=== PATIENT | male | born 1965 | race Caucasian/White ===

== ENCOUNTER 2023-11-20 07:07 | Day surgery (SDC) | payer BC ==
[2023-11-20] VITALS (13 sets, daily range): BP systolic 99–147; BP diastolic 66–88; PULSE 53–67; RESP 16; TEMP 97.5; O2SAT 94–98
[~2023-11-20] VITALS: Ht 185.4 cm; Wt 115.9 kg
[2023-11-20] MEDS ORDERED: NITR0.4T51 SL (07:53)
[2023-11-20] MEDS ORDERED: METO-384 PO (07:53)
[2023-11-20] MEDS ORDERED: AMLO2.5T2 PO (07:53)
[2023-11-20] MEDS ORDERED: OMEP40CA21 PO (07:53)
[2023-11-20] MEDS ORDERED: HYDR-3968 PO (07:53)
[2023-11-20] MEDS ORDERED: ROSU40TA PO (07:53)
[2023-11-20] MEDS: LORazepam 0.5 MG tablet PO PRN (08:16)
[2023-11-20] MEDS: diphenhydrAMINE 25mg capsule PO PRN (08:16)
[2023-11-20] MEDS: normal saline 1,000 ML IV SCH (08:17)
[2023-11-20 08:21] LABS: BASOPHILS # (AUTO) 0.1 X10'3 (0-0.2); EOSINOPHILS # (AUTO) 0.2 X10'3 (0-0.9); EOSINOPHILS % (AUTO) 2.3 % (0-6); HEMATOCRIT 42.5 % (42.0-52.0); HEMOGLOBIN 14.6 g/dl (14.0-17.9); LYMPHOCYTES # (AUTO) 1.7 X10'3 (1.1-4.8); LYMPHOCYTES % (AUTO) 26.7 % (21-51); MEAN CORPUSCULAR HEMOGLOBIN 32.6 PG (27.0-31.0); MEAN CORPUSCULAR HGB CONC 34.4 g/dL (33.0-36.5); MEAN CORPUSCULAR VOLUME 94.7 FL (78-98); MEAN PLATELET VOLUME 9.9 FL (7.4-10.4); MONOCYTES # (AUTO) 0.7 X10'3 (0-0.9); MONOCYTES % (AUTO) 11.2 % (2-12); NEUTROPHILS # (AUTO) 3.8 X10'3 (1.8-7.7); NEUTROPHILS % (AUTO) 58.8 % (42-75); PLATELET COUNT 157 X10'3 (140-440); RED BLOOD COUNT 4.49 X10'6 (4.70-6.10); RED CELL DISTRIBUTION WIDTH 12.6 % (11.5-14.5); WHITE BLOOD COUNT 6.5 X10'3 (4.5-11.0)
[2023-11-20] MEDS ORDERED: midazolam 1 mg/ML 2ml injection ONE (08:22)
[2023-11-20] MEDS ORDERED: iohexol 350 MG/ML 50ML vial IV ONE (08:23)
[2023-11-20] MEDS ORDERED: iohexol 350MG/ML 100ml bottle IV ONE (08:23)
[2023-11-20] MEDS ORDERED: fentaNYL/PF 50MCG/1 ML 2ML syringe ONE (08:23)
[2023-11-20] MEDS ORDERED: LIDOcaine 1% 30ml preserv. free vial ONE (08:23)
[2023-11-20 08:28] LABS: ALBUMIN 3.4 G/DL (3.4-5.0); ANION GAP 9 (8-16); BLOOD UREA NITROGEN 15 MG/DL (7-18); BUN/CREATININE RATIO 16.7 (10.0-20.0); CHLORIDE 109 MMOL/L (99-107); GLUCOSE 101 MG/DL (70-104); POTASSIUM 3.9 MMOL/L (3.5-5.1); SODIUM 141 MMOL/L (135-145); TOTAL CARBON DIOXIDE 23.5 MMOL/L (24-32); eCRCL 104 ML/MIN; eGFR 87 ML/MIN
[2023-11-20 09:22] LABS: APTT 25 SECONDS (22-32); INR 0.9 INR; PROTHROMBIN TIME 10.1 SECONDS (9.0-12.0)
[2023-11-20] MEDS ORDERED: HYDROmorphone 1 mg/ml syringe ONE ×2 (09:50→10:02)
[2023-11-20] MEDS ORDERED: ondansetron/PF 4mg/2ml inj IV PRN (11:00)
[2023-11-20] MEDS ORDERED: normal saline 1000ml 1,000 ML IV SCH (11:00)
[2023-11-20] MEDS ORDERED: HYDROcodone/acetaminophen 5mg/325mg tablet PO PRN (11:05)
[2023-11-20] MEDS ORDERED: proCHLORperazine 10 MG/2 ml inj IV PRN (11:05)
[2023-11-20] MEDS ORDERED: HYDROcodone/acetaminophen 10/325mg tab PO PRN (11:05)
[2023-11-20] MEDS ORDERED: OXAZEpam 15mg capsule PO PRN (11:05)
[2023-11-20] MEDS ORDERED: ACETYLCYSTEINE 200 MG/1 ML 4 ML ORAL SOLUTION PO SCH (20:00)
== END 2023-11-20 16:45 | disposition home or self-care (01) ==
LOC: SSTAY O 07:07
PROVIDERS: ATTEND Internal Medicine Cardiovascular Disease
DX: T82.855A Stenosis of coronary artery stent, initial encounter (principal); I25.118 Atherosclerotic heart disease of native coronary artery with other forms of angina pectoris; I10 Essential (primary) hypertension; M47.817 Spondylosis without myelopathy or radiculopathy, lumbosacral region; M47.812 Spondylosis without myelopathy or radiculopathy, cervical region; E78.5 Hyperlipidemia, unspecified; D75.1 Secondary polycythemia; I25.2 Old myocardial infarction; E66.9 Obesity, unspecified; Z68.33 Body mass index [BMI] 33.0-33.9, adult; Z88.0 Allergy status to penicillin; Z79.01 Long term (current) use of anticoagulants; Z79.899 Other long term (current) drug therapy; F17.290 Nicotine dependence, other tobacco product, uncomplicated; Z96.652 Presence of left artificial knee joint; Z96.612 Presence of left artificial shoulder joint; Y84.0 Cardiac catheterization as the cause of abnormal reaction of the patient, or of later complication, without mention of misadventure at the time of the procedure; Y92.89 Other specified places as the place of occurrence of the external cause
CPT/HCPCS: 36415; 80048; 85025; 85610; 85730; 93005; 93459; 99152; 99153; J1170; J1644; J2250; J3010; J3490; J7030; Q0163; Q9967; 93458; A6258

== ENCOUNTER 2023-12-12 11:46 | Inpatient (IN) | payer BC ==
[2023-12-05 14:42] LABS: BILIRUBIN,URINE NEGATIVE (Neg); CLARITY,URINE CLEAR (Clear); COLOR,URINE YELLOW (Yellow); GLUCOSE, URINE NEGATIVE (Neg); KETONES,URINE NEGATIVE (Neg); LEUKOCYTE ESTERASE ,URINE NEGATIVE (Neg); NITRITES, URINE NEGATIVE (Neg); OCCULT BLOOD,URINE NEGATIVE (Neg); PH,URINE 5.5 (4.8-8.0); PROTEIN,URINE NEGATIVE (Neg); UROBILINOGEN,URINE 0.2 E.U/dL (0.2-1.0)
[2023-12-05 14:43] LABS: BASOPHILS # (AUTO) 0.1 X10'3 (0-0.2); BASOPHILS % (AUTO) 0.8 % (0-1); EOSINOPHILS # (AUTO) 0.3 X10'3 (0-0.9); EOSINOPHILS % (AUTO) 3.5 % (0-6); LYMPHOCYTES # (AUTO) 2.1 X10'3 (1.1-4.8); LYMPHOCYTES % (AUTO) 28.2 % (21-51); MEAN CORPUSCULAR HEMOGLOBIN 32.4 PG (27.0-31.0); MEAN CORPUSCULAR HGB CONC 34.1 g/dL (33.0-36.5); MEAN PLATELET VOLUME 9.6 FL (7.4-10.4); MONOCYTES # (AUTO) 0.8 X10'3 (0-0.9); MONOCYTES % (AUTO) 10.3 % (2-12); NEUTROPHILS # (AUTO) 4.2 X10'3 (1.8-7.7); NEUTROPHILS % (AUTO) 57.2 % (42-75); PRE OP HEMATOCRIT 45.6 % (42.0-52.0); PRE OP HEMOGLOBIN 15.6 g/dL (14.0-17.9); PRE OP PLATELET COUNT 187 X10'3 (140-440); PRE OP WHITE BLOOD COUNT 7.4 10'3 (4.8-10.8); RED CELL DISTRIBUTION WIDTH 12.7 % (11.5-14.5)
[2023-12-05 14:59] LABS: UA COLLECTION TYPE NON-SPECIFIED
[2023-12-05 15:09] LABS: HEMOGLOBIN A1C 5.2 % (4.5-6.2); PRE OP INR 0.9 INR
[2023-12-05 15:17] LABS: ALBUMIN 3.8 G/DL (3.4-5.0); ALBUMIN/GLOBULIN RATIO 1.1 (1.1-1.5); ALKALINE PHOSPHATASE 62 IU/L (46-116); BLOOD UREA NITROGEN 15 MG/DL (7-18); BUN/CREATININE RATIO 14.9 (10.0-20.0); CALCIUM 9.1 MG/DL (8.5-10.1); CHLORIDE 108 MMOL/L (99-107); CREATININE 1.01 MG/DL (0.60-1.10); PRE OP ALT 35 U/L (30-65); PRE OP ANION GAP 10 (8-16); PRE OP AST 13 U/L (10-37); PRE OP BILIRUB, TOTAL 0.4 MG/DL (0.0-1.0); PRE OP GLUCOSE 92 MG/DL (70-104); PRE OP POTASSIUM 4.5 MMOL/L (3.4-5.1); PRE OP SODIUM 143 MMOL/L (135-145); TOTAL CARBON DIOXIDE 25.4 MMOL/L (24-32); TOTAL PROTEIN 7.2 G/DL (6.4-8.2); eCRCL 92 ML/MIN; eGFR 76 ML/MIN
[2023-12-09 07:22] LABS: ABG BASE EXCESS -2.6 mmol/L (-2.0-2.0); ABG HCO3 21.4 mmol/L (22.0-26.0); ABG OXYGEN SATURATION 90.8 % (94-97); ABG PCO2 (T) 35.1 mmHg (35.0-48.0); ABG PH (T) 7.403 (7.340-7.440); ABG PO2 (T) 64.1 mmHg (75.0-100.0); ALLEN'S TEST POSITIVE; FCOHb 0.2 % (0.0-3.9); FHHb 9.2 % (0.0-5.0); FMetHb 0.2 % (0.0-1.5); FO2Hb 90.4 % (94-97); MODE ROOM AIR; TOTAL HEMOGLOBIN 16.2 G/dl (14.0-17.9)
[2023-12-11] MEDS: DOCUMENT DATE & TIME OF BETA-BLOCKER PO ONE (18:00)
[2023-12-12] VITALS (15 sets, daily range): BP systolic 90–175; BP diastolic 43–95; PULSE 57–102; RESP 13–30; TEMP 98.4–98.7; O2SAT 96–99
[~2023-12-12] VITALS: Ht 185.4 cm; Wt 114.5 kg
[~2023-12-12 11:46] MED LIST: AMLO2.5T2 PO; HYDR-3973 PO; METO-384 PO; NITR0.4T51 SL; NITR1PAT63 TOP; OMEP40CA21 PO; ROSU40TA PO; albuterol 2.5 MG/3 ML nebule NEB PRN; dextrose 50%-water 50ml dispensing syringe IV PRN
[2023-12-12] MEDS ORDERED: heparin 10,000 units/1 ML INJ ONE (12:15)
[2023-12-12] MEDS ORDERED: BUPIVAcaine 0.5% inj/PF 30 ML ONE ×2 (12:16→12:35)
[2023-12-12] MEDS ORDERED: CLOP-32 PO (12:16)
[2023-12-12] MEDS ORDERED: ceFAZolin 1000mg inj ONE (12:35)
[2023-12-12] MEDS: famotidine 20mg tablet PO ONE (12:57)
[2023-12-12] MEDS: mupirocin 2% nasal ointment 1gm UD NS SCH ×2 (12:57→19:42)
[2023-12-12] MEDS: ringers solution, lacted 1,000 ML IV SCH (12:58)
[2023-12-12] MEDS: metoprolol tartrate 12.5mg (1/2 tablet) PO ONE (12:58)
[2023-12-12] MEDS: vancomycin 1,500 MG in NS 300ml IV soln IV ONE (12:58)
[2023-12-12] MEDS: Insulin Reg/NS 100units/100mL 100 ML IV SCH ×2 (12:59→18:00)
[2023-12-12] MEDS: CLINDAMYCIN 600mg IN NS 50ML 50 ML IV ONE (12:59)
[2023-12-12] MEDS: LORazepam 2 mg/ml vial IV ONE (13:56)
[2023-12-12] MEDS ORDERED: sevoflurane 250ml liquid IH ONE (13:57)
[2023-12-12] MEDS ORDERED: MIDAZolam 1 MG/ML 5ML VIAL ONE (13:59)
[2023-12-12] MEDS ORDERED: SUfentanil 50mcg/ml 1ml amp IV ONE (13:59)
[2023-12-12 14:36] LABS: ABG BASE EXCESS -3.7 mmol/L (-2.0-2.0); ABG HCO3 20.9 mmol/L (22.0-26.0); ABG OXYGEN SATURATION 98.9 % (94-97); ABG PCO2 36.8 mmHg (35.0-48.0); ABG PH 7.373 (7.340-7.440); ABG PO2 186.3 mmHg (75.0-100.0); CL (ABG) 107 mmol/L (99-107); FCOHb 0.1 % (0.0-3.9); FHHb 1.1 % (0.0-5.0); FMetHb 0.3 % (0.0-1.5); FO2Hb 98.5 % (94-97); GLUCOSE (ABG) 90 mg/dl (70-104); IONIZED CA (ABG) 1.19 mmol/L (1.10-1.30); K (ABG) 3.8 mmol/L (3.5-5.1); TOTAL HEMOGLOBIN 14.4 G/dl (14.0-17.9)
[2023-12-12] MEDS ORDERED: clindamycin-Cleocin 900mg/D5W 50 ML IV ONE (14:46)
[2023-12-12] MEDS: epiNEPHrine 1 mg/ml inj ONE (14:50)
[2023-12-12] MEDS: vancomycin 1,000mg inj ONE (14:51)
[2023-12-12] MEDS ORDERED: heparin 1,000unit/ml 10ml vial 10 ML ONE ×2 (15:25)
[2023-12-12] MEDS ORDERED: albumin (Human) 5% 250ml 250 ML IV ONE ×2 (15:30→16:56)
[2023-12-12 15:31] LABS: ABG BASE EXCESS VENOUS -3.9 mmol/L (-2.0 - 2.0); ABG HCO3 VENOUS 22.5 mmol/L (21.0-28.0); ABG PCO2 VENOUS 45.9 mmHg (41.0-54.0); ABG PH (VENOUS) 7.308 (7.310-7.450); ABG PO2 VENOUS 39.8 mmHg (25.0-35.0); CL (ABG) 106 mmol/L (99-107); FCOHb VENOUS 0.1 %; FHHb VENOUS 29.9 %; FMetHb VENOUS 0.3 % (0.0 - 0.5); FO2Hb VENOUS 69.7 %; GLUCOSE (ABG) 110 mg/dl (70-104); IONIZED CA (ABG) 1.16 mmol/L (1.10-1.30); K (ABG) 3.7 mmol/L (3.5-5.1); TOTAL HEMOGLOBIN 13.5 G/dl (14.0-17.9)
[2023-12-12 16:19] LABS: ABG BASE EXCESS VENOUS -4.8 mmol/L (-2.0 - 2.0); ABG HCO3 VENOUS 21.9 mmol/L (21.0-28.0); ABG OXYGEN SATURATION VENOUS 69.2 % (75 - 99 %); ABG PCO2 VENOUS 46.8 mmHg (41.0-54.0); ABG PH (VENOUS) 7.289 (7.310-7.450); ABG PO2 VENOUS 38.9 mmHg (25.0-35.0); CL (ABG) 106 mmol/L (99-107); FCOHb VENOUS 0.2 %; FHHb VENOUS 30.6 %; FMetHb VENOUS 0.3 % (0.0 - 0.5); FO2Hb VENOUS 68.9 %; GLUCOSE (ABG) 90 mg/dl (70-104); IONIZED CA (ABG) 1.15 mmol/L (1.10-1.30); K (ABG) 3.9 mmol/L (3.5-5.1); TOTAL HEMOGLOBIN 13.9 G/dl (14.0-17.9)
[2023-12-12] MEDS ORDERED: rocuronium 10mg/ml inj IV ONE ×3 (16:56)
[2023-12-12] MEDS ORDERED: propofol inj 20 ML IV ONE (16:56)
[2023-12-12 17:26] LABS: ABG BASE EXCESS VENOUS -4.6 mmol/L (-2.0 - 2.0); ABG HCO3 VENOUS 22.2 mmol/L (21.0-28.0); ABG OXYGEN SATURATION VENOUS 67.1 % (75 - 99 %); ABG PCO2 VENOUS 48.3 mmHg (41.0-54.0); ABG PH (VENOUS) 7.281 (7.310-7.450); CL (ABG) 107 mmol/L (99-107); FCOHb VENOUS 0.5 %; FHHb VENOUS 32.6 %; FMetHb VENOUS 0.3 % (0.0 - 0.5); FO2Hb VENOUS 66.6 %; GLUCOSE (ABG) 96 mg/dl (70-104); IONIZED CA (ABG) 1.13 mmol/L (1.10-1.30); K (ABG) 4.1 mmol/L (3.5-5.1); TOTAL HEMOGLOBIN 12.5 G/dl (14.0-17.9)
[2023-12-12] MEDS ORDERED: potassium CL 10mEq/100ml bag 100 ML IV PRN (18:00)
[2023-12-12] MEDS ORDERED: bisacodyl 10mg suppository rectal RC PRN (18:00)
[2023-12-12] MEDS ORDERED: mineral oil 133ml enema RC PRN (18:00)
[2023-12-12] MEDS ORDERED: ondansetron/PF 4mg/2ml inj IV PRN (18:00)
[2023-12-12] MEDS ORDERED: sodium phosphate inj. 30 MMOL in dextrose 5%-water 250 ML IV PRN (18:00)
[2023-12-12] MEDS ORDERED: potassium Cl 40MEQ/1/2NS 520ml 520 ML IV PRN (18:00)
[2023-12-12] MEDS ORDERED: Neutra Phos packet PO PRN (18:00)
[2023-12-12] MEDS ORDERED: niCARDipine-NS 40mg/200ml IVPB 200 ML IV PRN (18:00)
[2023-12-12] MEDS ORDERED: potassium Cl 20 mEq SR tablet PO PRN (18:00)
[2023-12-12] MEDS ORDERED: dextrose 50%-water 50ml dispensing syringe IV PRN (18:00)
[2023-12-12] MEDS ORDERED: metoclopramide 5 mg/ml inj IV PRN (18:00)
[2023-12-12] MEDS ORDERED: insulin glargine (Lantus) pen - multi-dose SQ PRN (18:00)
[2023-12-12] MEDS ORDERED: acetaminophen 325mg tablet PO PRN ×2 (18:00)
[2023-12-12] MEDS: albumin (Human) 5% 250ml 250 ML IV PRN (18:32)
[2023-12-12 18:35] LABS: BASOPHILS % (AUTO) 0.2 % (0-1); EOSINOPHILS # (AUTO) 0.1 X10'3 (0-0.9); EOSINOPHILS % (AUTO) 0.5 % (0-6); HEMATOCRIT 38.7 % (42.0-52.0); HEMOGLOBIN 12.9 g/dl (14.0-17.9); LYMPHOCYTES # (AUTO) 1.6 X10'3 (1.1-4.8); LYMPHOCYTES % (AUTO) 9.2 % (21-51); MEAN CORPUSCULAR HEMOGLOBIN 31.9 PG (27.0-31.0); MEAN CORPUSCULAR HGB CONC 33.5 g/dL (33.0-36.5); MEAN CORPUSCULAR VOLUME 95.2 FL (78-98); MEAN PLATELET VOLUME 9.5 FL (7.4-10.4); MONOCYTES # (AUTO) 1.2 X10'3 (0-0.9); MONOCYTES % (AUTO) 6.8 % (2-12); NEUTROPHILS # (AUTO) 14.4 X10'3 (1.8-7.7); NEUTROPHILS % (AUTO) 83.3 % (42-75); PLATELET COUNT 123 X10'3 (140-440); RED BLOOD COUNT 4.06 X10'6 (4.70-6.10); RED CELL DISTRIBUTION WIDTH 12.5 % (11.5-14.5); WHITE BLOOD COUNT 17.3 X10'3 (4.5-11.0)
[2023-12-12] MEDS: morphine 4 MG/ML inj SYRINge IV PRN (18:37)
[2023-12-12] MEDS: sodium chloride 0.45% 1,000 ML IV SCH (18:39)
[2023-12-12] MEDS: nitroGLYCERIN-Tridil 50MG/D5W 250 ML IV SCH (18:40)
[2023-12-12 18:45] LABS: APTT 27 SECONDS (22-32); FIBRINOGEN 262 MG/DL (177-424); INR 1.1 INR; PROTHROMBIN TIME 11.4 SECONDS (9.0-12.0)
[2023-12-12 18:47] LABS: ALANINE AMINOTRANSFERASE 22 U/L (12-78); ALBUMIN 2.7 G/DL (3.4-5.0); ALBUMIN/GLOBULIN RATIO 1.1 (1.1-1.5); ALKALINE PHOSPHATASE 45 IU/L (46-116); ANION GAP 9 (8-16); ASPARTATE AMINO TRANSFERASE 14 U/L (10-37); BLOOD UREA NITROGEN 10 MG/DL (7-18); BUN/CREATININE RATIO 14.1 (10.0-20.0); CALCIUM 8.4 MG/DL (8.5-10.1); CHLORIDE 110 MMOL/L (99-107); CREATININE 0.71 MG/DL (0.60-1.10); GLUCOSE 114 MG/DL (70-104); MAGNESIUM 1.7 MG/DL (1.5-2.4); PHOSPHORUS 3.7 MG/DL (2.3-4.5); SODIUM 143 MMOL/L (135-145); TOTAL CARBON DIOXIDE 24.1 MMOL/L (24-32); TOTAL PROTEIN 5.1 G/DL (6.4-8.2); eCRCL 131 ML/MIN; eGFR > 90 ML/MIN
[2023-12-12] MEDS: magnesium 2GM in 50ml NS 50 ML IV PRN (19:17)
[2023-12-12] MEDS: HYDROcodone/acetaminophen 10/325mg tab PO PRN (19:17)
[2023-12-12] MEDS: magnesium 4gm in 100ml NS 100 ML IV PRN (19:17)
[2023-12-12] MEDS: vancomycin/NS 1 GM ADD-VANTAGE 250 ML IV SCH (19:41)
[2023-12-12] MEDS: ketorolac tromethamine 15mg/ml inj. IV SCH (19:41)
[2023-12-12] MEDS: sennosides/docusate sodium tablet PO SCH (19:42)
[2023-12-12] MEDS: atorvastatin 10mg tablet PO SCH (19:42)
[2023-12-12] MEDS: potassium Cl 40MEQ/270ML bag 250 ML IV PRN (20:30)
[2023-12-12] MEDS: racepinephrine 11.25mg/0.5ml nebule IH ONE (22:37)
[2023-12-12] MEDS: albumin (Human) 5% 250ml 250 ML IV ONE (22:51)
[2023-12-12 23:19] LABS: ABG BASE EXCESS -6.3 mmol/L (-2.0-2.0); ABG HCO3 18.4 mmol/L (22.0-26.0); ABG OXYGEN SATURATION 94.1 % (94-97); ABG PCO2 (T) 33.4 mmHg (35.0-48.0); ABG PH (T) 7.357 (7.340-7.440); ABG PO2 (T) 69.3 mmHg (75.0-100.0); FCOHb 0.8 % (0.0-3.9); FHHb 5.8 % (0.0-5.0); FMetHb 0.3 % (0.0-1.5); FO2Hb 93.1 % (94-97); MODE SPONT; PATIENT TEMPERATURE 36.8; PEEP 5 cm H2O; TOTAL HEMOGLOBIN 12.2 G/dl (14.0-17.9)
[2023-12-13] VITALS (26 sets, daily range): BP systolic 80–132; BP diastolic 46–74; PULSE 70–114; RESP 14–25; O2SAT 93–97
[2023-12-13 00:05] LABS: BASOPHILS # (AUTO) 0.2 X10'3 (0-0.2); BASOPHILS % (AUTO) 1.3 % (0-1); EOSINOPHILS % (AUTO) 0.2 % (0-6); HEMATOCRIT 31.1 % (42.0-52.0); HEMOGLOBIN 10.7 g/dl (14.0-17.9); LYMPHOCYTES # (AUTO) 0.6 X10'3 (1.1-4.8); LYMPHOCYTES % (AUTO) 4.4 % (21-51); MEAN CORPUSCULAR HEMOGLOBIN 32.3 PG (27.0-31.0); MEAN CORPUSCULAR HGB CONC 34.5 g/dL (33.0-36.5); MEAN CORPUSCULAR VOLUME 93.7 FL (78-98); MEAN PLATELET VOLUME 9.3 FL (7.4-10.4); MONOCYTES % (AUTO) 7.6 % (2-12); NEUTROPHILS # (AUTO) 11.5 X10'3 (1.8-7.7); NEUTROPHILS % (AUTO) 86.5 % (42-75); PLATELET COUNT 131 X10'3 (140-440); RED BLOOD COUNT 3.32 X10'6 (4.70-6.10); RED CELL DISTRIBUTION WIDTH 12.5 % (11.5-14.5); WHITE BLOOD COUNT 13.3 X10'3 (4.5-11.0)
[2023-12-13 00:12] LABS: ALBUMIN 3.3 G/DL (3.4-5.0); ANION GAP 12 (8-16); BLOOD UREA NITROGEN 11 MG/DL (7-18); BUN/CREATININE RATIO 13.6 (10.0-20.0); CALCIUM 7.5 MG/DL (8.5-10.1); CHLORIDE 110 MMOL/L (99-107); CREATININE 0.81 MG/DL (0.60-1.10); GLUCOSE 120 MG/DL (70-104); MAGNESIUM 2.8 MG/DL (1.5-2.4); PHOSPHORUS 3.6 MG/DL (2.3-4.5); POTASSIUM 4.7 MMOL/L (3.5-5.1); SODIUM 142 MMOL/L (135-145); TOTAL CARBON DIOXIDE 19.9 MMOL/L (24-32); eCRCL 115 ML/MIN; eGFR > 90 ML/MIN
[2023-12-13] MEDS: albumin (Human) 5% 250ml 250 ML IV ONE ×2 (00:59→08:39)
[2023-12-13 02:56] LABS: BASOPHILS % (AUTO) 0.3 % (0-1); EOSINOPHILS % (AUTO) 0 % (0-6); HEMOGLOBIN 9.9 g/dl (14.0-17.9); LYMPHOCYTES # (AUTO) 0.9 X10'3 (1.1-4.8); LYMPHOCYTES % (AUTO) 10.3 % (21-51); MEAN CORPUSCULAR HEMOGLOBIN 32.5 PG (27.0-31.0); MEAN CORPUSCULAR HGB CONC 34.2 g/dL (33.0-36.5); MEAN CORPUSCULAR VOLUME 94.9 FL (78-98); MEAN PLATELET VOLUME 9.7 FL (7.4-10.4); MONOCYTES % (AUTO) 10.9 % (2-12); NEUTROPHILS # (AUTO) 7.2 X10'3 (1.8-7.7); NEUTROPHILS % (AUTO) 78.5 % (42-75); PLATELET COUNT 123 X10'3 (140-440); RED BLOOD COUNT 3.06 X10'6 (4.70-6.10); RED CELL DISTRIBUTION WIDTH 12.8 % (11.5-14.5); WHITE BLOOD COUNT 9.2 X10'3 (4.5-11.0)
[2023-12-13] MEDS: NORepinephrine 8mg/ 250ml NS 250 ML IV SCH (03:05)
[2023-12-13 03:12] LABS: ALANINE AMINOTRANSFERASE 19 U/L (12-78); ALBUMIN 3.3 G/DL (3.4-5.0); ALBUMIN/GLOBULIN RATIO 1.7 (1.1-1.5); ALKALINE PHOSPHATASE 25 IU/L (46-116); ANION GAP 12 (8-16); ASPARTATE AMINO TRANSFERASE 15 U/L (10-37); BILIRUBIN,TOTAL 1.3 MG/DL (0.1-1.0); BLOOD UREA NITROGEN 12 MG/DL (7-18); BUN/CREATININE RATIO 15.4 (10.0-20.0); CALCIUM 7.7 MG/DL (8.5-10.1); CHLORIDE 111 MMOL/L (99-107); CREATININE 0.78 MG/DL (0.60-1.10); GLUCOSE 113 MG/DL (70-104); POTASSIUM 4.4 MMOL/L (3.5-5.1); SODIUM 143 MMOL/L (135-145); TOTAL PROTEIN 5.2 G/DL (6.4-8.2); eCRCL 120 ML/MIN; eGFR > 90 ML/MIN
[2023-12-13] MEDS: potassium Cl 40MEQ/270ML bag 270 ML IV PRN (04:04)
[2023-12-13 04:10] LABS: MAGNESIUM 2.8 MG/DL (1.5-2.4); PHOSPHORUS 4.1 MG/DL (2.3-4.5)
[2023-12-13] MEDS: morphine 2 MG/ML inj. syringe IV PRN (07:22)
[2023-12-13] MEDS: metoprolol tartrate 12.5mg (1/2 tablet) PO SCH (07:23)
[2023-12-13] MEDS: aspirin 81mg tab.chew PO SCH (08:33)
[2023-12-13] MEDS: LIDOcaine 5% patch TP SCH (10:40)
[2023-12-13] MEDS ORDERED: ketorolac tromethamine 15mg/ml inj. IV SCH (14:00)
[2023-12-13 14:03] LABS: HEMATOCRIT 28.8 % (42.0-52.0); HEMOGLOBIN 9.6 g/dl (14.0-17.9); MEAN CORPUSCULAR HEMOGLOBIN 31.6 PG (27.0-31.0); MEAN CORPUSCULAR HGB CONC 33.3 g/dL (33.0-36.5); MEAN PLATELET VOLUME 9.8 FL (7.4-10.4); PLATELET COUNT 160 X10'3 (140-440); RED BLOOD COUNT 3.03 X10'6 (4.70-6.10); RED CELL DISTRIBUTION WIDTH 12.7 % (11.5-14.5); WHITE BLOOD COUNT 13.2 X10'3 (4.5-11.0)
[2023-12-13 18:06] LABS: BASOPHILS % (AUTO) 0.3 % (0-1); EOSINOPHILS % (AUTO) 0.1 % (0-6); HEMATOCRIT 27.3 % (42.0-52.0); HEMOGLOBIN 9.2 g/dl (14.0-17.9); LYMPHOCYTES # (AUTO) 2.4 X10'3 (1.1-4.8); LYMPHOCYTES % (AUTO) 19.7 % (21-51); MEAN CORPUSCULAR HEMOGLOBIN 32.2 PG (27.0-31.0); MEAN CORPUSCULAR HGB CONC 33.9 g/dL (33.0-36.5); MEAN CORPUSCULAR VOLUME 95.2 FL (78-98); MONOCYTES # (AUTO) 1.4 X10'3 (0-0.9); MONOCYTES % (AUTO) 11.8 % (2-12); NEUTROPHILS # (AUTO) 8.2 X10'3 (1.8-7.7); NEUTROPHILS % (AUTO) 68.1 % (42-75); PLATELET COUNT 149 X10'3 (140-440); RED BLOOD COUNT 2.87 X10'6 (4.70-6.10); WHITE BLOOD COUNT 12.1 X10'3 (4.5-11.0)
[2023-12-13 19:01] LABS: APTT 27 SECONDS (22-32); FIBRINOGEN 405 MG/DL (177-424); PROTHROMBIN TIME 10.9 SECONDS (9.0-12.0)
[2023-12-13] MEDS: magnesium hydroxide 30ml (MOM) UD suspension PO PRN (20:55)
[2023-12-14] VITALS (25 sets, daily range): BP systolic 92–158; BP diastolic 52–77; PULSE 80–111; RESP 13–24; O2SAT 3–95
[2023-12-14 04:06] LABS: ALBUMIN 2.7 G/DL (3.4-5.0); ANION GAP 7 (8-16); BLOOD UREA NITROGEN 13 MG/DL (7-18); BUN/CREATININE RATIO 13.8 (10.0-20.0); CALCIUM 7.7 MG/DL (8.5-10.1); CHLORIDE 107 MMOL/L (99-107); CREATININE 0.94 MG/DL (0.60-1.10); GLUCOSE 110 MG/DL (70-104); POTASSIUM 3.9 MMOL/L (3.5-5.1); SODIUM 141 MMOL/L (135-145); TOTAL CARBON DIOXIDE 26.6 MMOL/L (24-32); eCRCL 99 ML/MIN; eGFR 83 ML/MIN
[2023-12-14 06:13] LABS: BASOPHILS % (AUTO) 0.4 % (0-1); EOSINOPHILS % (AUTO) 0.5 % (0-6); HEMOGLOBIN 7.9 g/dl (14.0-17.9); LYMPHOCYTES # (AUTO) 1.8 X10'3 (1.1-4.8); LYMPHOCYTES % (AUTO) 20.3 % (21-51); MEAN CORPUSCULAR HEMOGLOBIN 32.7 PG (27.0-31.0); MEAN CORPUSCULAR HGB CONC 34.3 g/dL (33.0-36.5); MEAN CORPUSCULAR VOLUME 95.3 FL (78-98); MEAN PLATELET VOLUME 10.6 FL (7.4-10.4); MONOCYTES # (AUTO) 1.4 X10'3 (0-0.9); MONOCYTES % (AUTO) 15.3 % (2-12); NEUTROPHILS # (AUTO) 5.7 X10'3 (1.8-7.7); NEUTROPHILS % (AUTO) 63.5 % (42-75); PLATELET COUNT 109 X10'3 (140-440); RED BLOOD COUNT 2.41 X10'6 (4.70-6.10); RED CELL DISTRIBUTION WIDTH 12.7 % (11.5-14.5)
[2023-12-14] MEDS: pantoprazole 40mg Tablet.DR PO SCH (08:14)
[2023-12-14] MEDS: furosemide 40mg/4ml inj IV ONE (10:38)
[2023-12-14] MEDS: morphine 4 MG/ML inj SYRINge IV ONE (10:39)
[2023-12-14 20:59] LABS: PHOSPHORUS 2.2 MG/DL (2.3-4.5); POTASSIUM 4.2 MMOL/L (3.5-5.1)
[2023-12-14] MEDS: potassium Cl 20mEq/100mL bag 100 ML IV PRN (22:02)
[2023-12-14] MEDS: sodium phosphate inj. 15 MMOL in dextrose 5%-water 250 ML IV PRN (22:33)
[2023-12-15] VITALS (23 sets, daily range): BP systolic 92–137; BP diastolic 45–77; PULSE 80–112; RESP 13–26; TEMP 98.3–99.7; O2SAT 91–95
[2023-12-15 03:32] LABS: ALBUMIN 2.5 G/DL (3.4-5.0); ANION GAP 6 (8-16); BASOPHILS # (AUTO) 0.1 X10'3 (0-0.2); BASOPHILS % (AUTO) 0.6 % (0-1); BLOOD UREA NITROGEN 12 MG/DL (7-18); BUN/CREATININE RATIO 13.5 (10.0-20.0); CHLORIDE 108 MMOL/L (99-107); CREATININE 0.89 MG/DL (0.60-1.10); EOSINOPHILS # (AUTO) 0.1 X10'3 (0-0.9); GLUCOSE 113 MG/DL (70-104); HEMOGLOBIN 7.6 g/dl (14.0-17.9); LYMPHOCYTES # (AUTO) 1.7 X10'3 (1.1-4.8); LYMPHOCYTES % (AUTO) 19.5 % (21-51); MAGNESIUM 2.7 MG/DL (1.5-2.4); MEAN CORPUSCULAR HGB CONC 34.7 g/dL (33.0-36.5); MEAN PLATELET VOLUME 9.6 FL (7.4-10.4); MONOCYTES # (AUTO) 1.2 X10'3 (0-0.9); MONOCYTES % (AUTO) 13.6 % (2-12); NEUTROPHILS # (AUTO) 5.9 X10'3 (1.8-7.7); NEUTROPHILS % (AUTO) 65.3 % (42-75); PHOSPHORUS 3.5 MG/DL (2.3-4.5); PLATELET COUNT 126 X10'3 (140-440); POTASSIUM 4.3 MMOL/L (3.5-5.1); RED CELL DISTRIBUTION WIDTH 12.6 % (11.5-14.5); SODIUM 139 MMOL/L (135-145); TOTAL CARBON DIOXIDE 25.4 MMOL/L (24-32); eCRCL 105 ML/MIN; eGFR 88 ML/MIN
[2023-12-15 03:35] LABS: HEMATOCRIT 21.8 % (42.0-52.0)
[2023-12-15] MEDS ORDERED: magnesium 2GM in 50ml NS 50 ML IV PRN (10:45)
[2023-12-15] MEDS ORDERED: potassium Cl 20 mEq SR tablet PO PRN ×2 (10:45)
[2023-12-15] MEDS ORDERED: potassium Cl 40MEQ/270ML bag 250 ML IV PRN (10:45)
[2023-12-15] MEDS ORDERED: potassium Cl 40MEQ/1/2NS 520ml 520 ML IV PRN (10:45)
[2023-12-15] MEDS ORDERED: potassium CL 10mEq/100ml bag 100 ML IV PRN (10:45)
[2023-12-15] MEDS ORDERED: magnesium 4gm in 100ml NS 100 ML IV PRN (10:45)
[2023-12-15] MEDS ORDERED: potassium Cl 20mEq/100mL bag 100 ML IV PRN (10:45)
[2023-12-15] MEDS: magnesium Cl slow-release 64mg tablet PO SCH (20:10)
[2023-12-16] VITALS (10 sets, daily range): BP systolic 97–122; BP diastolic 63–77; PULSE 86–109; RESP 15–28; TEMP 97.8–98.5; O2SAT 93–98
[2023-12-16 06:29] LABS: ACT @ 1.70 U 310 SEC (193-297); ACT @ 2.84 U 453 SEC (260-420); BASELINE ACT 151 SEC (101-148)
[2023-12-16 06:48] LABS: BASOPHILS % (AUTO) 0.5 % (0-1); EOSINOPHILS # (AUTO) 0.2 X10'3 (0-0.9); EOSINOPHILS % (AUTO) 2.5 % (0-6); HEMOGLOBIN 7.3 g/dl (14.0-17.9); LYMPHOCYTES # (AUTO) 1.5 X10'3 (1.1-4.8); LYMPHOCYTES % (AUTO) 18.4 % (21-51); MEAN CORPUSCULAR HEMOGLOBIN 32.7 PG (27.0-31.0); MEAN CORPUSCULAR HGB CONC 34.4 g/dL (33.0-36.5); MEAN PLATELET VOLUME 9.3 FL (7.4-10.4); MONOCYTES # (AUTO) 0.9 X10'3 (0-0.9); MONOCYTES % (AUTO) 11.1 % (2-12); NEUTROPHILS # (AUTO) 5.5 X10'3 (1.8-7.7); NEUTROPHILS % (AUTO) 67.5 % (42-75); PLATELET COUNT 154 X10'3 (140-440); RED BLOOD COUNT 2.22 X10'6 (4.70-6.10); RED CELL DISTRIBUTION WIDTH 13.1 % (11.5-14.5); WHITE BLOOD COUNT 8.1 X10'3 (4.5-11.0)
[2023-12-16 06:54] LABS: HEMATOCRIT 21.1 % (42.0-52.0)
[2023-12-16 07:36] LABS: GLUCOSE 112 MG/DL (70-104); POTASSIUM 4.6 MMOL/L (3.5-5.1); SODIUM 142 MMOL/L (135-145)
[2023-12-16 07:37] LABS: ALBUMIN 2.2 G/DL (3.4-5.0); ANION GAP 9 (8-16); BLOOD UREA NITROGEN 12 MG/DL (7-18); BUN/CREATININE RATIO 14.1 (10.0-20.0); CALCIUM 7.7 MG/DL (8.5-10.1); CHLORIDE 108 MMOL/L (99-107); CREATININE 0.85 MG/DL (0.60-1.10); TOTAL CARBON DIOXIDE 25.5 MMOL/L (24-32); eCRCL 110 ML/MIN; eGFR > 90 ML/MIN
[2023-12-16] MEDS ORDERED: magnesium hydroxide 30ml (MOM) UD suspension PO PRN (12:50)
[2023-12-16] MEDS: magnesium citrate 296ml oral solution PO PRN (13:13)
[2023-12-16] MEDS: NORMAL SALINE ICATH ONE (15:30)
[2023-12-16] MEDS: ANGIO ICATH ONE (15:30)
[2023-12-16] MEDS: ALTEPLASE ICATH ONE (15:30)
[2023-12-16] MEDS: JUVEN Smoothie Arginine/Glut./Ca2+Bmb (Juven 19.3pkt) 240ml cup PO SCH (17:49)
[2023-12-16 22:07] LABS: BASOPHILS # (AUTO) 0.1 X10'3 (0-0.2); BASOPHILS % (AUTO) 0.6 % (0-1); EOSINOPHILS # (AUTO) 0.2 X10'3 (0-0.9); EOSINOPHILS % (AUTO) 2.2 % (0-6); HEMOGLOBIN 8.5 g/dl (14.0-17.9); LYMPHOCYTES # (AUTO) 1.5 X10'3 (1.1-4.8); LYMPHOCYTES % (AUTO) 14.9 % (21-51); MEAN CORPUSCULAR HEMOGLOBIN 32.3 PG (27.0-31.0); MEAN CORPUSCULAR VOLUME 94.9 FL (78-98); MEAN PLATELET VOLUME 8.7 FL (7.4-10.4); MONOCYTES # (AUTO) 1.1 X10'3 (0-0.9); MONOCYTES % (AUTO) 11.1 % (2-12); NEUTROPHILS # (AUTO) 7.1 X10'3 (1.8-7.7); NEUTROPHILS % (AUTO) 71.2 % (42-75); PLATELET COUNT 238 X10'3 (140-440); RED BLOOD COUNT 2.63 X10'6 (4.70-6.10); WHITE BLOOD COUNT 9.9 X10'3 (4.5-11.0)
[2023-12-16] MEDS: morphine 2 MG/ML inj. syringe IV ONE (22:38)
[2023-12-16] MEDS: normal saline 1000ml 1,000 ML IV SCH (22:38)
[2023-12-16] MEDS: simethicone 80mg chew tab PO PRN (22:38)
[2023-12-17] VITALS (8 sets, daily range): BP systolic 97–134; BP diastolic 58–74; PULSE 81–108; RESP 16–22; TEMP 96.8–98.8; O2SAT 95–97
[2023-12-17 08:00] LABS: BASOPHILS % (AUTO) 0.4 % (0-1); EOSINOPHILS # (AUTO) 0.1 X10'3 (0-0.9); EOSINOPHILS % (AUTO) 1.3 % (0-6); HEMATOCRIT 25.6 % (42.0-52.0); HEMOGLOBIN 8.7 g/dl (14.0-17.9); LYMPHOCYTES # (AUTO) 1.8 X10'3 (1.1-4.8); LYMPHOCYTES % (AUTO) 15.8 % (21-51); MEAN CORPUSCULAR HEMOGLOBIN 32.6 PG (27.0-31.0); MEAN CORPUSCULAR HGB CONC 34.1 g/dL (33.0-36.5); MEAN CORPUSCULAR VOLUME 95.7 FL (78-98); MEAN PLATELET VOLUME 8.6 FL (7.4-10.4); MONOCYTES # (AUTO) 1.3 X10'3 (0-0.9); MONOCYTES % (AUTO) 11.1 % (2-12); NEUTROPHILS # (AUTO) 8.1 X10'3 (1.8-7.7); NEUTROPHILS % (AUTO) 71.4 % (42-75); PLATELET COUNT 285 X10'3 (140-440); RED BLOOD COUNT 2.68 X10'6 (4.70-6.10); RED CELL DISTRIBUTION WIDTH 13.1 % (11.5-14.5); WHITE BLOOD COUNT 11.3 X10'3 (4.5-11.0)
[2023-12-17 09:12] LABS: ALBUMIN 2.4 G/DL (3.4-5.0); ANION GAP 9 (8-16); BLOOD UREA NITROGEN 18 MG/DL (7-18); BUN/CREATININE RATIO 18.4 (10.0-20.0); CALCIUM 8.2 MG/DL (8.5-10.1); CHLORIDE 105 MMOL/L (99-107); CREATININE 0.98 MG/DL (0.60-1.10); GLUCOSE 111 MG/DL (70-104); POTASSIUM 4.2 MMOL/L (3.5-5.1); SODIUM 140 MMOL/L (135-145); TOTAL CARBON DIOXIDE 26.2 MMOL/L (24-32); eCRCL 95 ML/MIN; eGFR 79 ML/MIN
[2023-12-18] VITALS (8 sets, daily range): BP systolic 106–128; BP diastolic 50–85; PULSE 71–116; RESP 14–27; TEMP 97.3–100; O2SAT 85–98
[2023-12-18 06:34] LABS: BASOPHILS % (AUTO) 0.4 % (0-1); EOSINOPHILS # (AUTO) 0.4 X10'3 (0-0.9); EOSINOPHILS % (AUTO) 3.7 % (0-6); HEMATOCRIT 25.4 % (42.0-52.0); HEMOGLOBIN 8.6 g/dl (14.0-17.9); LYMPHOCYTES # (AUTO) 2.1 X10'3 (1.1-4.8); MEAN CORPUSCULAR HEMOGLOBIN 32.3 PG (27.0-31.0); MEAN CORPUSCULAR HGB CONC 33.7 g/dL (33.0-36.5); MEAN CORPUSCULAR VOLUME 95.7 FL (78-98); MONOCYTES # (AUTO) 1.1 X10'3 (0-0.9); MONOCYTES % (AUTO) 10.9 % (2-12); NEUTROPHILS # (AUTO) 6.2 X10'3 (1.8-7.7); PLATELET COUNT 300 X10'3 (140-440); RED BLOOD COUNT 2.66 X10'6 (4.70-6.10); WHITE BLOOD COUNT 9.8 X10'3 (4.5-11.0)
[2023-12-18 06:45] LABS: ALBUMIN 2.2 G/DL (3.4-5.0); ANION GAP 9 (8-16); BLOOD UREA NITROGEN 14 MG/DL (7-18); BUN/CREATININE RATIO 14.4 (10.0-20.0); CALCIUM 8.2 MG/DL (8.5-10.1); CHLORIDE 107 MMOL/L (99-107); CREATININE 0.97 MG/DL (0.60-1.10); GLUCOSE 116 MG/DL (70-104); MAGNESIUM 2.1 MG/DL (1.5-2.4); POTASSIUM 4.2 MMOL/L (3.5-5.1); SODIUM 142 MMOL/L (135-145); TOTAL CARBON DIOXIDE 25.9 MMOL/L (24-32); eCRCL 96 ML/MIN; eGFR 80 ML/MIN
[2023-12-18] MEDS ORDERED: ASPI81TA53 PO (09:42)
[2023-12-18] MEDS ORDERED: LOP12.5T PO (09:42)
[2023-12-19 02:00] VITALS: BP 123/64; PULSE 89; RESP 16; TEMP 99.3; O2SAT 96
[2023-12-19] MEDS: HYDROcodone/acetaminophen 10/325mg tab PO PRN (02:11)
[2023-12-19 06:00] VITALS: BP 115/70; PULSE 93; RESP 18; TEMP 98.5; O2SAT 94
[2023-12-19 07:36] VITALS: BP_SYST 115; PULSE 93
[2023-12-19 08:00] VITALS: RESP 18; O2SAT 94
[2023-12-19 08:44] LABS: ALBUMIN 2.1 G/DL (3.4-5.0); ANION GAP 6 (8-16); BLOOD UREA NITROGEN 14 MG/DL (7-18); BUN/CREATININE RATIO 16.7 (10.0-20.0); CALCIUM 7.8 MG/DL (8.5-10.1); CHLORIDE 105 MMOL/L (99-107); CREATININE 0.84 MG/DL (0.60-1.10); GLUCOSE 108 MG/DL (70-104); SODIUM 138 MMOL/L (135-145); TOTAL CARBON DIOXIDE 26.9 MMOL/L (24-32); eCRCL 111 ML/MIN; eGFR > 90 ML/MIN
== END 2023-12-19 11:17 | disposition home or self-care (01) | DRG 236 ==
LOC: PAS IN 11:46 → ICU 2S 18:15 → PCU 3S 12-15 17:27
PROVIDERS: ADMIT Thoracic Surgery (Cardiothoracic Vascular Surgery); ATTEND Thoracic Surgery (Cardiothoracic Vascular Surgery)
PROC: 02100Z8 Bypass Coronary Artery, One Artery from Right Internal Mammary, Open Approach (ICD-10-PCS; 2023-12-12)
PROC: 021009W Bypass Coronary Artery, One Artery from Aorta with Autologous Venous Tissue, Open Approach (ICD-10-PCS; 2023-12-12)
PROC: 06BQ4ZZ Excision of Left Saphenous Vein, Percutaneous Endoscopic Approach (ICD-10-PCS; 2023-12-12)
PROC: [UNRECOGNIZED PROCEDURE] (2023-12-12)
PROC: 5A1221Z Performance of Cardiac Output, Continuous (ICD-10-PCS; 2023-12-12)
PROC: B24BZZ4 Ultrasonography of Heart with Aorta, Transesophageal (ICD-10-PCS; 2023-12-12)
PROC: 02100Z9 Bypass Coronary Artery, One Artery from Left Internal Mammary, Open Approach (ICD-10-PCS; principal; 2023-12-12 13:57)
DX: I25.10 Atherosclerotic heart disease of native coronary artery without angina pectoris (principal); J98.11 Atelectasis; J94.2 Hemothorax; S27.892A Contusion of other specified intrathoracic organs, initial encounter; X58.XXXA Exposure to other specified factors, initial encounter; E66.9 Obesity, unspecified; I10 Essential (primary) hypertension; E78.5 Hyperlipidemia, unspecified; Y93.89 Activity, other specified; Y92.89 Other specified places as the place of occurrence of the external cause; Y99.8 Other external cause status; Z87.891 Personal history of nicotine dependence; Z68.33 Body mass index [BMI] 33.0-33.9, adult; Z88.0 Allergy status to penicillin
CPT/HCPCS: 93312; 93325; Z7506; Z7508; 36415; 36600; 71045; 71046; 80048; 80053; 81003; 82330; 82435; 82803; 82947; 82948; 83036; 83735; 84100; 84132; 84295; 85018; 85025; 85027; 85347; 85384; 85610; 85730; 86885; 86900; 86901; 86920; 87081; 93005; 93880; 93970; 94002; 94010; 94640; 94668; 94760; 97116; 97161; 97530; A4333; A4615; A4618; A4620; A6213; A6253; A6258; A6446; A6449; A7000; A7048; C1751; C1758; G0378; J0171; J0690; J1644; J1815; J1885; J1940; J2060; J2250; J2270; J2704; J2930; J3370; J3475; J3480; J3490; J7030; J7040; J7050; J7060; J7120; P9045; S0020

== ENCOUNTER 2023-12-24 12:32 | Outpatient (CLI) | payer BC ==
[~2023-12-24 12:32] MED LIST changes: -AMLO2.5T2 PO; +ASPI81TA53 PO; +LOP12.5T PO; -METO-384 PO; -NITR0.4T51 SL; -NITR1PAT63 TOP; -albuterol 2.5 MG/3 ML nebule NEB PRN; -dextrose 50%-water 50ml dispensing syringe IV PRN
== END 2023-12-24 23:59 | disposition home or self-care (01) ==
LOC: RAD 12:32
PROVIDERS: ATTEND Thoracic Surgery (Cardiothoracic Vascular Surgery)
DX: I51.7 Cardiomegaly (principal); R06.02 Shortness of breath
CPT/HCPCS: 71046

== ENCOUNTER 2023-12-28 19:50 | Inpatient (IN) | payer BC ==
[~2023-12-28] VITALS: Ht 188 cm; Wt 113.6 kg
[~2023-12-28 19:50] MED LIST changes: +atropine 0.1mg/ml 10ml syringe ONE
[2023-12-28 20:03] VITALS: TEMP 98
[2023-12-28 20:46] LABS: ALANINE AMINOTRANSFERASE 66 U/L (12-78); ALBUMIN 2.6 G/DL (3.4-5.0); ALBUMIN/GLOBULIN RATIO 0.6 (1.1-1.5); ALKALINE PHOSPHATASE 160 IU/L (46-116); ANION GAP 15 (8-16); ASPARTATE AMINO TRANSFERASE 32 U/L (10-37); BILIRUBIN,TOTAL 0.6 MG/DL (0.1-1.0); BLOOD UREA NITROGEN 18 MG/DL (7-18); BUN/CREATININE RATIO 18.8 (10.0-20.0); CALCIUM 8.8 MG/DL (8.5-10.1); CHLORIDE 102 MMOL/L (99-107); CREATININE 0.96 MG/DL (0.60-1.10); GLUCOSE 124 MG/DL (70-104); POTASSIUM 3.7 MMOL/L (3.5-5.1); SODIUM 138 MMOL/L (135-145); TOTAL CARBON DIOXIDE 20.9 MMOL/L (24-32); TOTAL PROTEIN 7.2 G/DL (6.4-8.2); eCRCL 100 ML/MIN; eGFR 81 ML/MIN
[2023-12-28 20:54] LABS: PRO BRAIN NATRIURETIC PEPTIDE 855 PG/ML (0-125)
[2023-12-28] MEDS ORDERED: iohexol 350MG/ML 100ml bottle IV ONE (21:12)
[2023-12-28] MEDS ORDERED: aspirin 325mg tablet, delayed-release (Ecotrin) PO ONE (21:25)
[2023-12-28] MEDS: LORazepam 2 mg/ml vial IV ONE (21:33)
[2023-12-28] MEDS: morphine 4 MG/ML inj SYRINge IV ONE (21:33)
[2023-12-28 21:45] LABS: BASOPHILS # (AUTO) 0.1 X10'3 (0-0.2); BASOPHILS % (AUTO) 0.5 % (0-1); EOSINOPHILS # (AUTO) 0.1 X10'3 (0-0.9); EOSINOPHILS % (AUTO) 0.4 % (0-6); HEMATOCRIT 32.7 % (42.0-52.0); HEMOGLOBIN 10.3 g/dl (14.0-17.9); LYMPHOCYTES # (AUTO) 1.1 X10'3 (1.1-4.8); MEAN CORPUSCULAR HEMOGLOBIN 27.8 PG (27.0-31.0); MEAN CORPUSCULAR HGB CONC 31.6 g/dL (33.0-36.5); MEAN PLATELET VOLUME 8.8 FL (7.4-10.4); MONOCYTES # (AUTO) 1.2 X10'3 (0-0.9); MONOCYTES % (AUTO) 9.7 % (2-12); NEUTROPHILS # (AUTO) 9.7 X10'3 (1.8-7.7); NEUTROPHILS % (AUTO) 80.4 % (42-75); PLATELET COUNT 93 X10'3 (140-440); RED BLOOD COUNT 3.71 X10'6 (4.70-6.10); RED CELL DISTRIBUTION WIDTH 15.9 % (11.5-14.5); WHITE BLOOD COUNT 12.1 X10'3 (4.5-11.0)
[2023-12-28 22:27] VITALS: BP 112/92; O2SAT 96
[2023-12-28] MEDS ORDERED: vancomycin/NS 1 GM ADD-VANTAGE 250 ML IV ONE (23:15)
[2023-12-28] MEDS ORDERED: heparin 10,000 units/1 ML INJ IV PRN (23:20)
[2023-12-28] MEDS ORDERED: heparin 10,000 units/1 ML INJ IV ONE (23:20)
[2023-12-28] MEDS: CefTRIAXone/D5W-Rocephin 1gm 50 ML IV ONE (23:41)
[2023-12-28 23:52] LABS: APTT 27 SECONDS (22-32); INR 1.2 INR; PROTHROMBIN TIME 12.6 SECONDS (9.0-12.0)
[2023-12-28] MEDS: heparin 10,000 units/1 ML INJ IV ONE (23:52)
[2023-12-28] MEDS: heparin 25,000 UNIT/250ml bag 250 ML IV PRN (23:56)
[2023-12-29] MEDS ORDERED: mag hydrox/Alum hydrox/simeth 30ml oral suspension PO PRN (00:05)
[2023-12-29] MEDS ORDERED: acetaminophen 325mg tablet PO PRN ×2 (00:05)
[2023-12-29] MEDS ORDERED: morphine 2 MG/ML inj. syringe IV ONE (00:05)
[2023-12-29] MEDS ORDERED: ondansetron/PF 4mg/2ml inj IV PRN (00:05)
[2023-12-29] MEDS ORDERED: HYDROcodone/acetaminophen 5mg/325mg tablet PO PRN (00:05)
[2023-12-29] MEDS ORDERED: magnesium hydroxide 30ml (MOM) UD suspension PO PRN (00:05)
[2023-12-29] MEDS ORDERED: morphine 2 MG/ML inj. syringe IV PRN (00:05)
[2023-12-29] MEDS: morphine 2 MG/ML inj. syringe IV PRN (00:11)
[2023-12-29] MEDS ORDERED: LORazepam 2 mg/ml vial IM ONE (00:15)
[2023-12-29] MEDS ORDERED: propofol 1000mg/100ml bottle 100 ML IV ONE (00:45)
[2023-12-29 01:11] VITALS: PULSE 134; RESP 23
[2023-12-29] MEDS: LORazepam 2 mg/ml vial IV ONE (01:13)
[2023-12-29] MEDS ORDERED: alteplase 100MG inj. 100 ML ONE (01:23)
[2023-12-29] MEDS ORDERED: docusate sod 100mg capsule PO SCH (08:00)
[2023-12-30 08:15] LABS: ALLEN'S TEST POSITIVE; MODE VENT-AC; PATIENT TEMPERATURE 38.1; RESPIRATORY RATE 16 b/min; TIDAL VOLUME 500 mL
[2023-12-30 08:16] LABS: ABG PH (T) < 6.670 (7.340-7.440)
[2023-12-30 08:17] LABS: ABG OXYGEN SATURATION 66.5 % (94-97); ABG PCO2 (T) 100.7 mmHg (35.0-48.0); ABG PO2 (T) 80.1 mmHg (75.0-100.0); FCOHb 0.1 % (0.0-3.9); FHHb 33.4 % (0.0-5.0); FMetHb 0.3 % (0.0-1.5); FO2Hb 66.2 % (94-97)
== END 2023-12-29 01:50 | DRG 175 ==
LOC: ER 19:50 → ED HOLD 12-29 00:06
PROVIDERS: ADMIT Internal Medicine; ATTEND Internal Medicine
PROC: 5A12012 Performance of Cardiac Output, Single, Manual (ICD-10-PCS; principal; 2023-12-29)
PROC: 3E03317 Introduction of Other Thrombolytic into Peripheral Vein, Percutaneous Approach (ICD-10-PCS; 2023-12-29)
PROC: 0BH17EZ Insertion of Endotracheal Airway into Trachea, Via Natural or Artificial Opening (ICD-10-PCS; 2023-12-29)
DX: I26.99 Other pulmonary embolism without acute cor pulmonale (principal); J18.9 Pneumonia, unspecified organism; E87.20 Acidosis, unspecified; I46.9 Cardiac arrest, cause unspecified; I25.10 Atherosclerotic heart disease of native coronary artery without angina pectoris; F41.9 Anxiety disorder, unspecified; Z88.0 Allergy status to penicillin; Z95.1 Presence of aortocoronary bypass graft; Z79.82 Long term (current) use of aspirin; Z79.899 Other long term (current) drug therapy
CPT/HCPCS: 36415; 36600; 71045; 71275; 80053; 82803; 82948; 83605; 83880; 84145; 84484; 85018; 85025; 85610; 85730; 87040; 93005; 96365; 96367; 96375; 96376; 99291; G0378; J0171; J0461; J0696; J1644; J2060; J2270; J2310; J2997; J3490; J7030; Q9967